=== PATIENT | female | born 1965 | race Caucasian/White ===

== ENCOUNTER 2016-12-27 11:23 | Observation (INO) | payer OTHER ==
[2016-12-27] MEDS ORDERED: ASPIRIN 81 MG CHEW PO STA (11:40)
[2016-12-27] MEDS ORDERED: NITROGLYCERIN OINT 1 INCH/GM PACKET TOPICAL STA (11:40)
--- NOTE | 2016-12-27 11:42 | ED ---
General Adult HPI - General Chief complaint: Chest Pain Stated complaint: CHEST PAIN Time Seen by Provider: 12/27/16 11:25 Source: patient, RN notes reviewed Mode of arrival: wheelchair Limitations: no limitations - History of Present Illness Initial comments: This is a 51-year-old female who presents to the emergency department with past medical history significant for smoking. Patient also has a past medical history for high blood pressure. Patient's also has a positive family history for coronary artery disease. Patient comes in today because she just got back from [place] couple days ago and now she started to spray some chest pain over the last couple of days. Patient states it seems to be worse with deep inspiration. Patient denies any shortness of breath per patient denies any radiation of this pain. Patient denies any diaphoresis with the pain. Patient denies any abdominal pain patient denies any nausea vomiting or diarrhea. Patient denies any recent fever chills or cough. Patient denies any lightheadedness dizziness or near syncopal episode. Patient denies any headache patient denies numbness weakness. Patient denies any back pain. Patient denies any recent injury or trauma. - Related Data Home Medications Medication Instructions Recorded Confirmed Citalopram Hydrobromide [CeleXA] 20 mg PO DAILY 02/20/16 12/27/16 Lisinopril-Hctz 20-12.5 mg 1 tab PO DAILY 02/20/16 12/27/16 [Zestoretic 20-12.5] Allergies Allergy/AdvReac Type Severity Reaction Status Date / Time Penicillins Allergy Rash/Hives Verified 12/27/16 12:13 Review of Systems ROS Statement: Those systems with pertinent positive or pertinent negative responses have been documented in the HPI. ROS Other: All systems not noted in ROS Statement are negative. Past Medical History Past Medical History: GERD/Reflux, Hypertension History of Any Multi-Drug Resistant Organisms: None Reported Past Surgical History: Cholecystectomy, Hysterectomy Past Anesthesia/Blood Transfusion Reactions: No Reported Reaction Past Psychological History: Anxiety, Depression Smoking Status: Current every day smoker Past Alcohol Use History: Occasional Past Drug Use History: None Reported - Past Family History Mother Family Medical History: Cancer, COPD, Diabetes Mellitus, Hypertension General Exam - General Exam Comments Initial Comments: GENERAL: Patient is well-developed and well-nourished. Patient is nontoxic and well- hydrated and is in mild distress. ENT: Neck is soft and supple. No significant lymphadenopathy is noted. Oropharynx is clear. Moist mucous membranes. Neck has full range of motion without eliciting any pain. EYES: The sclera were anicteric and conjunctiva were pink and moist. Extraocular movements were intact and pupils were equal round and reactive to light. Eyelids were unremarkable. PULMONARY: Unlabored respirations. Good breath sounds bilaterally. No audible rales rhonchi or wheezing was noted. CARDIOVASCULAR: There is a regular rate and rhythm without any murmurs gallops or rubs. ABDOMEN: Soft and nontender with normal bowel sounds. No palpable organomegaly was noted. There is no palpable pulsatile mass. SKIN: Skin is clear with no lesions or rashes and otherwise unremarkable. NEUROLOGIC: Patient is alert and oriented x3. Cranial nerves II through XII are grossly intact. Motor and sensory are also intact. Normal speech, volume and content. Symmetrical smile. MUSCULOSKELETAL: Normal extremities with adequate strength and full range of motion. No lower extremity swelling or edema. No calf tenderness. LYMPHATICS: No significant lymphadenopathy is noted PSYCHIATRIC: Normal psychiatric evaluation. Normal interpersonal interactions appears functionally intact in deals appropriately with others. No signs of depression. No signs of anxiety. Limitations: no limitations Course Vital Signs 12/27/16 12/27/16 12/27/16 11:28 13:04 13:51 Temperature 97.0 F L Pulse Rate 92 71 65 Respiratory 16 18 18 Rate Blood Pressure 96/51 104/55 92/55 O2 Sat by Pulse 100 99 100 Oximetry Medical Decision Making - Medical Decision Making EKG shows normal sinus rhythm at 85 bpm WI interval 226 QRS is 72 QT interval 390 QTC is 464. Patient's EKG shows no ST segment elevation or depression or T wave abnormalities are noted. Chest x-ray shows no acute normalities. CT of the chest shows no acute abnormality. I started the patient because of her symptoms risk factors and family history. I spoke with Dr. De La Rosa and he agreed to admit the patient admitted the patient I wrote admitting orders and I consult cardiology. I continue heparin aspirin and nitro paste on the floor. - Lab Data Result diagrams: 12/27/16 11:41 12/27/16 11:41 Lab Results 12/27/16 12/27/16 12/27/16 Range/Units 11:41 11:41 11:41 WBC 7.3 (3.8-10.6) k/uL RBC 4.45 (3.80-5.40) m/uL Hgb 12.6 (11.4-16.0) gm/dL Hct 38.7 (34.0-46.0) % MCV 86.8 (80.0-100.0) fL MCH 28.3 (25.0-35.0) pg MCHC 32.6 (31.0-37.0) g/dL RDW 13.6 (11.5-15.5) % Plt Count 370 (150-450) k/uL Neutrophils % 68 % Lymphocytes % 25 % Monocytes % 3 % Eosinophils % 2 % Basophils % 0 % Neutrophils # 5.0 (1.3-7.7) k/uL Lymphocytes # 1.9 (1.0-4.8) k/uL Monocytes # 0.2 (0-1.0) k/uL Eosinophils # 0.1 (0-0.7) k/uL Basophils # 0.0 (0-0.2) k/uL PT (9.0-12.0) sec INR (<1.1) APTT (22.0-30.0) sec D-Dimer (<0.60) mg/L FEU Sodium 140 (137-145) mmol/L Potassium 4.5 (3.5-5.1) mmol/L Chloride 103 (98-107) mmol/L Carbon Dioxide 27 (22-30) mmol/L Anion Gap 10 mmol/L BUN 11 (7-17) mg/dL Creatinine 0.60 (0.52-1.04) mg/dL Est GFR (MDRD) Af Amer >60 (>60 ml/min/1.73 sqM) Est GFR (MDRD) Non-Af >60 (>60 ml/min/1.73 sqM) Glucose 89 (74-99) mg/dL Calcium 9.8 (8.4-10.2) mg/dL Magnesium 2.1 (1.6-2.3) mg/dL Total Bilirubin 0.5 (0.2-1.3) mg/dL AST 14 (14-36) U/L ALT 25 (9-52) U/L Alkaline Phosphatase 51 (38-126) U/L Total Creatine Kinase 52 (30-135) U/L CK-MB (CK-2) 0.3 (0.0-2.4) ng/mL CK-MB (CK-2) Rel Index 0.6 Troponin I <0.012 (0.000-0.034) ng/mL NT-Pro-B Natriuret Pep pg/mL Total Protein 7.0 (6.3-8.2) g/dL Albumin 4.4 (3.5-5.0) g/dL 12/27/16 12/27/16 Range/Units 11:41 11:41 WBC (3.8-10.6) k/uL RBC (3.80-5.40) m/uL Hgb (11.4-16.0) gm/dL Hct (34.0-46.0) % MCV (80.0-100.0) fL MCH (25.0-35.0) pg MCHC (31.0-37.0) g/dL RDW (11.5-15.5) % Plt Count (150-450) k/uL Neutrophils % % Lymphocytes % % Monocytes % % Eosinophils % % Basophils % % Neutrophils # (1.3-7.7) k/uL Lymphocytes # (1.0-4.8) k/uL Monocytes # (0-1.0) k/uL Eosinophils # (0-0.7) k/uL Basophils # (0-0.2) k/uL PT 10.6 (9.0-12.0) sec INR 1.1 (<1.1) APTT 22.1 (22.0-30.0) sec D-Dimer 0.35 (<0.60) mg/L FEU Sodium (137-145) mmol/L Potassium (3.5-5.1) mmol/L Chloride (98-107) mmol/L Carbon Dioxide (22-30) mmol/L Anion Gap mmol/L BUN (7-17) mg/dL Creatinine (0.52-1.04) mg/dL Est GFR (MDRD) Af Amer (>60 ml/min/1.73 sqM) Est GFR (MDRD) Non-Af (>60 ml/min/1.73 sqM) Glucose (74-99) mg/dL Calcium (8.4-10.2) mg/dL Magnesium (1.6-2.3) mg/dL Total Bilirubin (0.2-1.3) mg/dL AST (14-36) U/L ALT (9-52) U/L Alkaline Phosphatase (38-126) U/L Total Creatine Kinase (30-135) U/L CK-MB (CK-2) (0.0-2.4) ng/mL CK-MB (CK-2) Rel Index Troponin I (0.000-0.034) ng/mL NT-Pro-B Natriuret Pep 43 pg/mL Total Protein (6.3-8.2) g/dL Albumin (3.5-5.0) g/dL Critical Care Time Critical Care Time: Yes Total Critical Care Time: 35 Disposition Clinical Impression: Unstable angina pectoris Disposition: ADMITTED IP TO THIS HOSP Referrals: Jose Oliver DO [Primary Care Provider] - 1-2 days Time of Disposition: 14:01
[2016-12-27 12:05] LABS: Basophils % (A) 0 %; CH 28.7; CHCM 33.2; Eosinophils # (A) 0.1 k/uL (0-0.7); Eosinophils % (A) 2 %; HCT 38.7 % (34.0-46.0); HDW 2.31; HGB 12.6 gm/dL (11.4-16.0); Luc # (Auto) 0.11; Luc % (Auto) 2; Lymphocytes # (A) 1.9 k/uL (1.0-4.8); Lymphocytes % (A) 25 %; MCH 28.3 pg (25.0-35.0); MCHC 32.6 g/dL (31.0-37.0); MCV 86.8 fL (80.0-100.0); Mean Platelet Volume 6.8; Monocytes # (A) 0.2 k/uL (0-1.0); Monocytes % (A) 3 %; Neutrophils % (A) 68 %; RBC 4.45 m/uL (3.80-5.40); RDW 13.6 % (11.5-15.5); WBC 7.3 k/uL (3.8-10.6); WBC (Perox) 7.89
--- NOTE | 2016-12-27 12:07 | XR ---
EXAMINATION TYPE: XR chest 2V DATE OF EXAM: 12/27/2016 12:01 PM COMPARISON: 09/23/1999 TECHNIQUE: PA and lateral views submitted. HISTORY: Chest pain FINDINGS: The lungs are clear and there is no pneumothorax, pleural effusion, or focal pneumonia. Surgical cl ips in the abdomen. Hypertrophic change of the spine. IMPRESSION: 1. No acute process.
[2016-12-27 12:23] LABS: ALT 25 U/L (9-52); AST 14 U/L (14-36); Alkaline Phosphatase 51 U/L (38-126); Anion Gap 10 mmol/L; Blood Urea Nitrogen 11 mg/dL (7-17); Calcium 9.8 mg/dL (8.4-10.2); Carbon Dioxide 27 mmol/L (22-30); Chloride 103 mmol/L (98-107); Glucose 89 mg/dL (74-99); Magnesium 2.1 mg/dL (1.6-2.3); Non-African American GFR(MDRD) >60 (>60 ml/min/1.73 sqM); Potassium 4.5 mmol/L (3.5-5.1); Sodium 140 mmol/L (137-145); Total Bilirubin 0.5 mg/dL (0.2-1.3)
[2016-12-27 12:26] LABS: Partial Thromboplastin Time 22.1 sec (22.0-30.0)
[2016-12-27 12:30] LABS: Creatine Kinase 52 U/L (30-135); INR 1.1 (<1.1); Prothrombin Time 10.6 sec (9.0-12.0)
[2016-12-27 12:44] LABS: Creatine Kinase MB 0.3 ng/mL (0.0-2.4); Troponin I <0.012 ng/mL (0.000-0.034)
[2016-12-27] MEDS ORDERED: RX INFO: IV CONTRAST WAS GIVEN 1 EACH MISC MISCELLANE PRN (13:13)
--- NOTE | 2016-12-27 13:43 | CT ---
EXAMINATION TYPE: CT chest angio for PE DATE OF EXAM: 12/27/2016 1:34 PM COMPARISON: Chest x-ray same date HISTORY: Chest pain and shortness of breath CT DLP: 159.6 mGycm Automated exposure control for dose reduction was used. CONTRAST: CT Chest for pulmonary embolism performed with with IV Contrast, patient injected with 100 mL of Omni paque 350. FINDINGS: LUNGS: The lungs are grossly clear, there is no concerning parenchymal mass or nodule identified. T here is no pleural effusion or pneumothorax seen. The tracheobronchial tree is patent. MEDIASTINUM: There is satisfactory enhancement of the pulmonary artery and its branches, there is no CT evidence for pulmonary embolism. There are no greater than 1 cm hilar or mediastinal lymph nodes. Some metallic density is present associated with nonenlarged nodes in the aorticopulmonary window N o pericardial effusion is seen. AORTA: No additional significant abnormality is seen. OTHER: Posterior diaphragmatic hernias containing fat. Possible parapelvic cyst involving the left k idney. Patient is post cholecystectomy. IMPRESSION: No evident pulmonary embolism. Additional findings above.
[2016-12-27] MEDS ORDERED: HEPARIN SODIUM,PORCINE 5,000 UNIT/ML 1 ML VIAL IV ONE (13:59)
[2016-12-27] MEDS ORDERED: HEPARIN SODIUM,PORCINE/D5W PMX 25,000 UNIT in DEXTROSE/WATER 1 500ML.BAG IV SCH (14:00)
[2016-12-27] MEDS ORDERED: NITROGLYCERIN SL TABS 0.4 MG TAB SUBLINGUAL PRN (14:02)
[2016-12-27] MEDS: NITROGLYCERIN OINT 1 INCH/GM PACKET TOPICAL SCH (18:03)
--- NOTE | 2016-12-27 18:13 | P.HPIM ---
History of Present Illness H&P Date: 12/27/16 Chief Complaint: Chest pain, shortness of breath, nausea, palpitation 51-year-old female one of Dr. Oliver patient with chronic history of smoking over one pack a day for the last 20 years is known to have history of hypertension and diverticulitis and anxiety disease was the hospital last in February last year for diverticulitis with Dr. Garnett patient had early appendicitis as well was treated taking care of. Patient was traveling to [facility] this last week ended up flying back on Tuesday she was doing well until Tuesday when developed to have slight bilateral chest pain worse in the right than the left side on the upper part of her rib cage and the shoulder blade area worsening with deep inspiration worsening with exertion as well associated with cold sweat and palpitation. Patient symptoms become much worse today ended up coming to the emergency department at [facility] her CTA was negative for PE, CK with troponin came back negative with patient family history, smoking, height retention and hyperlipidemia patient was admitted to the hospital with schedule simple stress test and seen cardiology and lesser enzyme become positive overnight. Review of Systems Constitutional: Reports fatigue, Reports lethargy, Reports weakness, Reports weight loss, Denies as per HPI, Denies anorexia, Denies chills, Denies chronic headaches, Denies chronic pain, Denies daytime sleepiness, Denies fever, Denies malaise, Denies night sweats, Denies poor appetite, Denies sweats, Denies weight gain Eyes: bilateral as per HPI Ears: bilateral: decreased hearing Ears, nose, mouth and throat: Reports ant. neck pain, Reports sinus pressure, Denies as per HPI, Denies bleeding gums, Denies dental pain, Denies dysphagia, Denies epistaxis, Denies headache, Denies hoarseness, Denies mouth pain, Denies nasal congestion, Denies nasal discharge, Denies neck fullness/pressure, Denies neck lump, Denies nose pain, Denies odynophagia, Denies post-nasal drip, Denies sinus pain, Denies swelling in mouth, Denies swelling in throat, Denies sore throat, Denies vertigo, Denies voice changes Cardiovascular: Reports chest pain, Reports claudication, Reports decreased exercise tolerance, Reports dyspnea on exertion, Reports high blood pressure, Reports lightheadedness, Reports shortness of breath, Denies as per HPI, Denies edema, Denies irregular heart beat, Denies leg edema, Denies orthopnea, Denies palpitations, Denies paroxysmal nocturnal dyspnea, Denies phlebitis, Denies rapid heart beat, Denies syncope Respiratory: Reports congestion, Reports pain on inspiration, Reports wheezing Gastrointestinal: Reports bloating, Reports heartburn, Reports indigestion, Reports loss of appetite, Reports nausea, Denies as per HPI, Denies abdominal pain, Denies belching, Denies BRBPR, Denies change in bowel habits, Denies coffee ground emesis, Denies constipation, Denies diarrhea, Denies dyspepsia, Denies early satiety, Denies excessive gas, Denies hematemesis, Denies hematochezia, Denies jaundice, Denies lactose intolerance, Denies melena, Denies vomiting Genitourinary: Denies as per HPI, Denies abnormal vaginal bleeding, Denies decreased libido, Denies difficulty conceiving, Denies difficulty voiding, Denies dysmenorrhea, Denies dyspareunia, Denies dysuria, Denies flank pain, Denies genital sores, Denies hematuria, Denies hot flashes, Denies incomplete emptying, Denies kidney stones, Denies menorrhagia, Denies mixed incontinence, Denies nocturia, Denies pelvic pain, Denies post void dribbling, Denies , Denies prolapse symptoms, Denies stress incontinence, Denies urge incontinence , Denies urgency, Denies urinary frequency, Denies vaginal discharge, Denies vaginal dryness, Denies vaginal itching, Denies vaginal odor Musculoskeletal: Reports arm numbness/tingling, Reports leg numbness/tingling, Reports low back pain, Reports myalgias, Reports neck pain, Denies as per HPI, Denies atrophy, Denies fractures, Denies frequent falls, Denies gait dysfunction , Denies hot joints, Denies limitation of motion, Denies loss of height, Denies morning stiffness, Denies muscle cramps, Denies muscle weakness, Denies neck stiffness, Denies prior amputations, Denies redness of joints, Denies shooting arm pain, Denies shooting leg pain Musculoskeletal: bilateral: ankle pain Integumentary: Reports rash, Reports sores, Denies as per HPI, Denies acne, Denies boils, Denies brittle nails, Denies change in hair/nails, Denies color changes, Denies darkening of skin, Denies depigmentation, Denies dryness, Denies foot/leg ulcers, Denies growths, Denies hirsutism, Denies lesions, Denies onychomycosis, Denies pruritus, Denies striae, Denies unusual bruising, Denies wounds Neurological: Denies as per HPI, Denies aphasia, Denies ataxia, Denies balance difficulties, Denies burning pain, Denies change in mentation, Denies change in smell/taste, Denies change in speech, Denies confusion, Denies convulsions, Denies double vision, Denies gait dysfunction, Denies head injury, Denies headaches, Denies hearing difficulties, Denies lack of coordination, Denies loss of vision, Denies memory loss, Denies migraines, Denies motor disturbance, Denies numbness, Denies paralysis, Denies paresthesias, Denies seizures, Denies sensory deficit, Denies spasticity, Denies syncope, Denies tic, Denies tingling , Denies transient paralysis, Denies tremors, Denies vertigo, Denies weakness, Denies visual changes Psychiatric: Reports anhedonia, Reports depression, Denies as per HPI, Denies anxiety, Denies anxiety attacks, Denies change in appetite, Denies change in libido, Denies change in sleep habits, Denies confusion, Denies difficulty concentrating, Denies disorientation, Denies hallucinations, Denies hopelessness , Denies hypersomnia, Denies insomnia, Denies irritability, Denies memory loss, Denies mood swings, Denies paranoia, Denies sadness/tearfulness, Denies sleep disturbances, Denies suicidal ideation Endocrine: Reports cold intolerance, Reports fatigue, Denies as per HPI, Denies deepening of the voice, Denies excessive sweating, Denies excessive thirst, Denies flushing, Denies heat intolerance, Denies high blood sugars, Denies increase in ring/shoe/hat size, Denies low blood sugars, Denies nocturia, Denies palpitations, Denies polydipsia, Denies polyphagia, Denies polyuria, Denies proptosis, Denies recent glucocorticoid use, Denies thyroid mass, Denies weight change Hematologic/Lymphatic: Reports easy bruising, Denies as per HPI, Denies easy bleeding, Denies lymphadenopathy, Denies lymphedema, Denies thrombophilia Allergic/Immunologic: Reports allergic rhinitis, Denies as per HPI, Denies anaphylaxis, Denies angioedema, Denies gluten intolerance, Denies persistent infections, Denies seasonal allergies, Denies urticaria, Denies wheezing Past Medical History Past Medical History: GERD/Reflux, Hypertension Additional Past Medical History / Comment(s): DIVERTICULAR DISEASE History of Any Multi-Drug Resistant Organisms: None Reported Past Surgical History: Cholecystectomy, Hysterectomy Past Anesthesia/Blood Transfusion Reactions: No Reported Reaction Past Psychological History: Anxiety, Depression Additional Psychological History / Comment(s): AT TIME OF THIS ADMIT PT STATED SHE FEELS WELL MAINTAINED BY HERE MEDS. PT LIVES ALONE IN OWN HOME THAT HAS 4 STEPS IN WHICH TO ENTER.HAS 1 PET DOG. NO OUTSIDE SERVICES, NO MEDICAL EQUIPMENT AT HOME. PT IS INDEPENDANT. WORKS A [employer] FOR [employer]. Smoking Status: Current every day smoker Past Alcohol Use History: Occasional Additional Past Alcohol Use History / Comment(s): STARTED SMOKING AT AGE 15, SMOKES 1 PPD. Past Drug Use History: None Reported - Past Family History Mother Family Medical History: Cancer, COPD, Diabetes Mellitus, Hypertension Father Additional Family Medical History / Comment(s): FROM [place] Medications and Allergies Home Medications Medication Instructions Recorded Confirmed Type Citalopram Hydrobromide [CeleXA] 20 mg PO DAILY 02/20/16 12/27/16 History Lisinopril-Hctz 20-12.5 mg 1 tab PO DAILY 02/20/16 12/27/16 History [Zestoretic 20-12.5] Allergies Allergy/AdvReac Type Severity Reaction Status Date / Time Penicillins Allergy Rash/Hives Verified 12/27/16 12:13 Physical Exam Vitals: Vital Signs Temp Pulse Pulse Resp BP BP Pulse Ox 12/27/16 15:45 18 12/27/16 15:01 97.5 F L 68 18 96/63 100 12/27/16 14:26 98.8 F 65 18 92/55 98 Intake and Output 12/27/16 12/27/16 12/27/16 06:59 14:59 22:59 Other: Weight 54 kg Patient Weight 12/28/16 06:59 Weight 54 kg - Constitutional General appearance: no average body habitus, cooperative, no disheveled, no mild distress, no morbidly obese, no acute distress, no obese, no severe distress, no thin - EENT Eyes: no abnormal pupil, no anicteric sclerae, no disc margins sharp, no edentulous, no EOMI, no PERRLA, no fundus normal, no photophobia, no dentition normal, no poor dentition, no ptosis, no scleral icterus, normal appearance ENT: no hard of hearing, no hearing grossly normal, no NA/AT, no normal oropharynx, no other, pharyngeal erythema, no thrush, no tonsillar exudates, no tonsillar swelling Ears: bilateral: normal - Neck Neck: no lymphadenopathy, normal ROM, no other, no rigidity, no stridor, no thyromegaly Carotids: bilateral: upstroke normal, upstroke delayed Thyroid: bilateral: normal size - Respiratory Respiratory: bilateral: CTA, diminished, dullness - Cardiovascular Rhythm: regular Heart sounds: normal: S1, S2 Abnormal Heart Sounds: systolic murmur, S3 Gallop - Gastrointestinal General gastrointestinal: no absent bowel sounds, decreased bowel sounds, no distended, no hepatomegaly, no hyperactive bowel sounds, normal bowel sounds, no organomegaly, no rigid, no scaphoid, soft, no splenomegaly, no tenderness, no umbilical hernia, no ventral hernia - Integumentary Integumentary: no calor, no cellulitis, no cyanotic, no decreased turgor, no flushed, no jaundiced, normal, no normal turgor, pale, rash, no ulcer - Neurologic Neurologic: CNII-XII intact - Musculoskeletal Musculoskeletal: gait normal, generalized weakness, no strength equal bilaterally, no right sided weakness, no left sided weakness - Psychiatric Psychiatric: A&O x's 3, appropriate affect Results CBC & Chem 7: 12/27/16 11:41 12/27/16 11:41 Thrombosis Risk Factor Assmnt - DVT/VTE Prophylaxis DVT/VTE Prophylaxis: Pharmacologic Prophylaxis ordered, Mechanical Prophylaxis ordered Assessment and Plan Plan: 1 atypical chest pain: With patient's current symptoms CTA was done no PE or thrombus at this point, troponin was negative PG didn't show any major abnormality. Patient be hospitalized will be seen cardiology schedule echo stress test and echocardiogram for now. 2 shortness of breath: Most likely from COPD and chronic smoking try to treat underlying disease and if needed rescue inhaler can be use. 3 hypertension: Has been on lisinopril HCT 20/12.5 mg daily doing very well with it so far. 4 hoarseness: Secondary to vocal cord nodular patient apparently had a diagnosis but refused surgery in the past for way about having to vocal cord paralysis. Something patient can follow-up as an outpatient with ENT. 5 chronic smoking: Patient will be on nicotine patch for now. 6 recurrent diverticulitis: With no inflamed diverticulitis lately has been doing well. 7 GERD/GI prophylaxis: Patient be on Pepcid 20 mg daily. 8 DVT prophylaxis: Patient will be on heparin drip for now. CODE STATUS: Full code. Expectation from this admission: Patient in the hospital for 1-2 nights.
[2016-12-27 18:51] LABS: Creatine Kinase 41 U/L (30-135)
[2016-12-27 19:03] LABS: Creatine Kinase MB 0.3 ng/mL (0.0-2.4); Troponin I <0.012 ng/mL (0.000-0.034)
[2016-12-27] MEDS ORDERED: CITALOPRAM HYDROBROMIDE 20 MG TAB PO STA (19:42)
[2016-12-27] MEDS ORDERED: HEPARIN SODIUM,PORCINE 10,000 UNIT/ML 1 ML VIAL IV STA (23:17)
[2016-12-28 00:23] LABS: Creatine Kinase 36 U/L (30-135)
[2016-12-28 00:37] LABS: Creatine Kinase MB 0.4 ng/mL (0.0-2.4); Troponin I <0.012 ng/mL (0.000-0.034)
[2016-12-28] MEDS: NITROGLYCERIN OINT 1 INCH/GM PACKET TOPICAL SCH ×3 (01:12→15:07)
[2016-12-28] MEDS ORDERED: HEPARIN SODIUM,PORCINE 10,000 UNIT/ML 1 ML VIAL SQ STA (01:21)
[2016-12-28 08:21] LABS: Cholesterol 181 mg/dL (<200); HDL Cholesterol 53 mg/dL (40-60); Triglycerides 106 mg/dL (<150)
--- NOTE | 2016-12-28 08:33 | P.CRDCN ---
History of Present Illness Consult date: 12/28/16 Chief complaint: Chest discomfort History of present illness: This is a pleasant 51-year-old female patient with a past medical history significant for hypertension who was also a smoker and has very significant family history of CAD presented to the emergency room complaining of chest discomfort. The patient just came from a trip from [facility]. She has been experiencing chest discomfort for the last 2 days. She describes the discomfort as a pressure across the chest without any radiation to the arm or neck or shoulders and without any associated symptoms. The chest discomfort doesn't seems to be exertional. She has been pain-free during her hospitalization. She has hypertension as a risk factor for CAD. She doesn't smoke 1 pack per day for more than 20 years. She has significant family history of CAD. The cardiac workup of EKG and enzymes came in to be unremarkable. She underwent a CTA of the chest which showed no evidence of PE. The patient was ruled out for acute coronary event. In view of her risk factor and significant family history I will schedule the patient to have a stress test early this morning. Past Medical History Past Medical History: GERD/Reflux, Hypertension Additional Past Medical History / Comment(s): DIVERTICULAR DISEASE History of Any Multi-Drug Resistant Organisms: None Reported Past Surgical History: Cholecystectomy, Hysterectomy Past Anesthesia/Blood Transfusion Reactions: No Reported Reaction Past Psychological History: Anxiety, Depression Additional Psychological History / Comment(s): AT TIME OF THIS ADMIT PT STATED SHE FEELS WELL MAINTAINED BY HERE MEDS. PT LIVES ALONE IN OWN HOME THAT HAS 4 STEPS IN WHICH TO ENTER.HAS 1 PET DOG. NO OUTSIDE SERVICES, NO MEDICAL EQUIPMENT AT HOME. PT IS INDEPENDANT. WORKS A [employer] FOR [employer]. Smoking Status: Current every day smoker Past Alcohol Use History: Occasional Additional Past Alcohol Use History / Comment(s): STARTED SMOKING AT AGE 15, SMOKES 1 PPD. Past Drug Use History: None Reported - Past Family History Mother Family Medical History: Cancer, COPD, Diabetes Mellitus, Hypertension Father Additional Family Medical History / Comment(s): FROM [place] Medications and Allergies Home Medications Medication Instructions Recorded Confirmed Type Citalopram Hydrobromide [CeleXA] 20 mg PO DAILY 02/20/16 12/27/16 History Lisinopril-Hctz 20-12.5 mg 1 tab PO DAILY 02/20/16 12/27/16 History [Zestoretic 20-12.5] Allergies Allergy/AdvReac Type Severity Reaction Status Date / Time Penicillins Allergy Rash/Hives Verified 12/27/16 12:13 Physical Exam Vitals: Vital Signs Temp Pulse Pulse Resp BP BP Pulse Ox 12/28/16 07:42 98.1 F 71 16 92/57 97 12/28/16 07:19 96 12/28/16 04:00 70 16 12/28/16 03:58 98.8 F 79 16 95/59 95 12/28/16 00:00 68 16 12/27/16 23:37 98.5 F 68 16 98/52 97 12/27/16 20:00 68 16 12/27/16 19:46 97.8 F 70 16 98/51 98 12/27/16 15:45 18 12/27/16 15:01 97.5 F L 68 18 96/63 100 12/27/16 14:26 98.8 F 65 18 92/55 98 Intake and Output 12/27/16 12/28/16 12/28/16 22:59 06:59 14:59 Intake Total 620 965.463 Balance 620 965.463 Intake: IV 440 0.9 NS @ KVO 240 Heparin Sodium,Porcine/ 200 D5w Pmx 25,000 unit In Dextrose/Water 1 500ml. bag @ 12 UNITS/KG/HR 14. 15 mls/hr IV .Q24H [facility] Rx #:[id number] Intake, IV Titration 125.463 Amount Heparin Sodium,Porcine/ 125.463 D5w Pmx 25,000 unit In Dextrose/Water 1 500ml. bag @ 12 UNITS/KG/HR 14. 15 mls/hr IV .Q24H [facility]ANE Rx #:[id number] Oral 620 400 Other: # Voids 2 Weight 54 kg 57 kg - Constitutional General appearance: no acute distress - Respiratory Respiratory: bilateral: CTA - Cardiovascular Rhythm: regular Heart sounds: normal: S1, S2 Results 12/27/16 11:41 12/27/16 11:41 Cardiac Enzymes 12/27/16 12/27/16 Range/Units 17:36 23:36 CK-MB (CK-2) 0.3 0.4 (0.0-2.4) ng/mL Troponin I <0.012 <0.012 (0.000-0.034) ng/mL Coagulation 12/27/16 12/28/16 Range/Units 21:12 07:22 APTT 26.0 33.2 H (22.0-30.0) sec Lipids 12/28/16 Range/Units 07:20 Triglycerides 106 (<150) mg/dL Cholesterol 181 (<200) mg/dL HDL Cholesterol 53 (40-60) mg/dL Current Medications Generic Name Dose Route Start Last Admin Trade Name Freq PRN Reason Stop Dose Admin Aspirin 325 mg 12/28/16 09:00 Aspirin PO DAILY [facility] Citalopram Hydrobromide 20 mg 12/28/16 09:00 Celexa PO DAILY [facility] Famotidine 20 mg 12/28/16 09:00 Pepcid PO DAILY [facility] Lisinopril/HCTZ 1 each 12/28/16 09:00 Zestoretic 20-12.5 PO DAILY [facility] Heparin Sodium/Dextrose 25,000 500 mls @ 14.15 mls/hr 12/27/16 14:00 23:13 unit/ IV Solution IV 15 units/kg/hr .Q24H YANE 17.69 mls/hr Protocol Titration 12 UNITS/KG/HR Miscellaneous Information 1 each 12/27/16 13:13 12/27/16 13:51 Rx Info: Iv Contrast Was Given MISCELLANE 12/29/16 13:13 1 each DAILY PRN Administration Per Protocol Nicotine 1 patch 12/28/16 09:00 Habitrol 14mg/24hr Patch TRANSDERM DAILY [facility] Nitroglycerin 1 inch 12/27/16 18:00 12/28/16 06:05 Nitro-Bid Oint TOPICAL Not Given Q6HR [facility] Nitroglycerin 0.4 mg 12/27/16 14:02 Nitrostat SUBLINGUAL Q5M PRN Chest Pain Intake and Output 12/27/16 12/28/16 12/28/16 22:59 06:59 14:59 Intake Total 620 965.463 Balance 620 965.463 Intake: IV 440 0.9 NS @ KVO 240 Heparin Sodium,Porcine/ 200 D5w Pmx 25,000 unit In Dextrose/Water 1 500ml. bag @ 12 UNITS/KG/HR 14. 15 mls/hr IV .Q24H [facility] Rx #:[id number] Intake, IV Titration 125.463 Amount Heparin Sodium,Porcine/ 125.463 D5w Pmx 25,000 unit In Dextrose/Water 1 500ml. bag @ 12 UNITS/KG/HR 14. 15 mls/hr IV .Q24H [facility] Rx #:[id number] Oral 620 400 Other: # Voids 2 Weight 54 kg 57 kg Assessment and Plan Plan: Assessment #1 atypical chest discomfort #2 hypertension #3 significant history of smoking #4 significant family history of CAD Plan #1 the patient will be scheduled to undergo a stress test.
[2016-12-28] MEDS ORDERED: CITALOPRAM HYDROBROMIDE 20 MG TAB PO SCH (09:00)
[2016-12-28] MEDS ORDERED: ASPIRIN 325 MG TAB PO SCH (09:00)
[2016-12-28] MEDS ORDERED: FAMOTIDINE 20 MG TAB PO SCH (09:00)
[2016-12-28] MEDS ORDERED: NICOTINE 14MG/24HR PATCH TRANSDERM SCH (09:00)
[2016-12-28] MEDS ORDERED: LISINOPRIL-HCTZ 20-12.5 MG 1 EACH TAB PO SCH (09:00)
[2016-12-28 11:19] VITALS: BP 96/61; PULSE 85; RESP 14; TEMP 98
--- NOTE | 2016-12-28 11:29 | EST ---
DATE OF SERVICE: 12/28/2016 AGE: 51Y SEX: F HT: 61" WT: 125 lbs. Protocol Bryon: X Other: Stress Stage: 3 Dur. of Exercise: 7:00 *Heart Rate Blood Pressure *Rest: 82 Rest: 94/63 * *Max. Achieved: 154 Maximum BP: 141/72 85% PMHR: 145 100% PMHR: 171 *METS: 8.6 INDICATIONS: Chest pain. MEDICATIONS: Celexa, lisinopril. Baseline EKG revealed normal sinus rhythm without significant ST-T changes. Patient walked on standard Bryon protocol for a total duration of 7 minutes, achieved a maximum heart rate of 154 beats per minute. Developed fatigue and shortness of breath, but did not have angina or arrhythmia. There were a lot of artifact, but there were no ST segment changes to indicate ischemia and patient did not have angina. By EKG criteria, this is a negative stress test with fair exercise capacity. There was no angina or arrhythmia.
--- NOTE | 2016-12-28 12:43 | P.DS ---
Providers Date of admission: 12/27/16 14:02 Expected date of discharge: 12/28/16 Attending physician: Brandon De La Rosa Primary care physician: Jose Oliver [facility] Course: 51-year-old female one of Dr. Oliver patient with chronic history of smoking over one pack a day for the last 20 years is known to have history of hypertension and diverticulitis and anxiety disease was the hospital last in February last year for diverticulitis with Dr. Garnett patient had early appendicitis as well was treated taking care of. Patient was traveling to [facility] this last week ended up flying back on Tuesday she was doing well until Tuesday when developed to have slight bilateral chest pain worse in the right than the left side on the upper part of her rib cage and the shoulder blade area worsening with deep inspiration worsening with exertion as well associated with cold sweat and palpitation. Patient symptoms become much worse today ended up coming to the emergency department at [facility] her CTA was negative for PE, CK with troponin came back negative with patient family history, smoking, height retention and hyperlipidemia patient was admitted to the hospital with schedule simple stress test and seen cardiology and lesser enzyme become positive overnight. 12/28: Patient was seen by cardiology and underwent a stress test that was negative. 3 sets of troponin were negative. Lipid panel triglycerides were 106 , total cholesterol 181, LDL 107, HDL 53. Patient will be discharged home in stable condition. 1 atypical chest pain 2 shortness of breath 3 hypertension 4 hoarseness 5 chronic smoking 6 recurrent diverticulitis 7 GERD The above impression and plan of care have been discussed and directed by signing physician. Mehreen Chapa nurse practitioner acting as scribe for signing physician. Cc Dr. Oliver Plan - Discharge Summary New Discharge Prescriptions: Nicotine 14Mg/24Hr Patch [Habitrol] 1 patch TRANSDERM DAILY #30 patch Discharge Medication List Citalopram Hydrobromide [CeleXA] 20 mg PO DAILY 02/20/16 [History] Lisinopril-Hctz 20-12.5 mg [Zestoretic 20-12.5] 1 tab PO DAILY 02/20/16 [History ] Nicotine 14Mg/24Hr Patch [Habitrol] 1 patch TRANSDERM DAILY #30 patch 12/28/16 [ Rx] Follow up Appointment(s)/Referral(s): Jose Oliver, [Primary Care Provider] - 1 Week Discharge Disposition: HOME SELF-CARE
== END 2016-12-28 15:05 | disposition home or self-care (01) ==
LOC: EC 11:23 → 3OBS 14:02
PROVIDERS: ADMIT Internal Medicine; ATTEND Internal Medicine
DX: R07.89 Other chest pain (principal); R06.02 Shortness of breath; R61 Generalized hyperhidrosis; R00.2 Palpitations; J44.9 Chronic obstructive pulmonary disease, unspecified; F17.200 Nicotine dependence, unspecified, uncomplicated; I10 Essential (primary) hypertension; J38.2 Nodules of vocal cords; K57.92 Diverticulitis of intestine, part unspecified, without perforation or abscess without bleeding; K21.9 Gastro-esophageal reflux disease without esophagitis; F41.9 Anxiety disorder, unspecified; F32.9 Major depressive disorder, single episode, unspecified; Z79.899 Other long term (current) drug therapy; Z88.0 Allergy status to penicillin; Z82.5 Family history of asthma and other chronic lower respiratory diseases; Z82.49 Family history of ischemic heart disease and other diseases of the circulatory system; Z83.3 Family history of diabetes mellitus; E78.5 Hyperlipidemia, unspecified
CPT/HCPCS: 96366 ×2; 96376; 96365; 99291; 36415; 94760; 93005; 93017; 85379; 83880; 80061; 80053; 82550; 82553; 83735; 84484; 85025; 85610; 85730 ×2; 71020; 71275; G0378 ×2; J1644 ×2; Q9967

== ENCOUNTER → 2022-09-15 | Outpatient (CLI) | payer OTHER ==
--- NOTE | 2022-09-16 15:15 | NM ---
EXAMINATION TYPE: NM thyroid image w uptake DATE OF EXAM: 09/16/2022 COMPARISON: NONE HISTORY: E05.9THYROTOXICOSIS, UNSP WITHOUT THYROTOXIC CRISIS OR STORM TECHNIQUE: Thyroid iodine uptake is calculated and images performed after the oral administration of 290 uCi 1-123 Capsule. FINDINGS: There is increased distribution of activity throughout the gland. There is no evidence for hot or cold nodule. The 4 hour iodine uptake is calculated at 39.8% (normal range 8-14%). The 24-john r iodine uptake is calculated at 53.6% (normal range 15-35%). IMPRESSION: Findings compatible with hypertrapping state. Correlate with the thyroid function testing .
== END | disposition home or self-care (01) ==
LOC: RADNMMAIN 08:38
PROVIDERS: ATTEND Family Medicine
DX: E05.90 Thyrotoxicosis, unspecified without thyrotoxic crisis or storm (principal)
CPT/HCPCS: 78014; A9516

== ENCOUNTER → 2022-09-15 | Outpatient (CLI) | payer OTHER ==
--- NOTE | 2022-09-15 10:27 | US ---
EXAMINATION TYPE: US thyroid st tissue head/neck DATE OF EXAM: 09/15/2022 COMPARISON: NONE CLINICAL HISTORY: E05.90 THYROTOXICOSIS. abn labs, no symptoms GLAND SIZE: Right Lobe: 4.5 x 1.2 x 2.0 cm Overall Parenchyma: heterogenous, increased color flow. Left Lobe: 3.2 x 1.2 x 1.5cm cm Overall Parenchyma: heterogeneous, increased color flow. Isthmus Thickness: 0.2 cm NODULES RIGHT: # of nodules measured on right: 0 LEFT: # of nodules measured on left: 0 ISTHMUS: # of nodules measured in the isthmus: 0 Bilateral neck scanned, no evidence of lymphadenopathy. IMPRESSION: Diffusely heterogenous thyroid gland with increased color flow. No discrete nodules. Findings could b e seen with Graves' disease.
== END | disposition home or self-care (01) ==
LOC: RADUSWWP 08:18
PROVIDERS: ATTEND Family Medicine
DX: E05.90 Thyrotoxicosis, unspecified without thyrotoxic crisis or storm (principal); E07.89 Other specified disorders of thyroid
CPT/HCPCS: 76536

== ENCOUNTER → 2022-11-19 | Outpatient (CLI) | payer OTHER ==
[2022-11-19 18:54] LABS: HCT 40.9 % (37.2-46.3); HGB 13.4 g/dL (12.0-15.0); MCH 27.2 pg (27.0-32.0); MCHC 32.8 g/dL (32.0-37.0); Mean Platelet Volume 10.4 fL (9.5-12.2); NRBC Per 100 WBC 0 /100 WBCS (0.0-0.0); Platelet Count 404 X 10*3/uL (140-440); RBC 4.93 X 10*6/uL (4.10-5.20); RDW 12.7 % (11.5-14.5); WBC 6.93 X 10*3/uL (4.50-10.00)
[2022-11-19 19:25] LABS: ALT 14 U/L (8-44); AST 14 U/L (13-35); African American GFR (CKD) 119.9 (60.0-200.0); Albumin 4.8 g/dL (3.8-4.9); Albumin/Globulin Ratio 2.22 (1.60-3.17); Alkaline Phosphatase 75 U/L (41-126); BUN/Creat Ratio 22.53 Ratio (12.00-20.00); Blood Urea Nitrogen 13.2 mg/dL (9.0-27.0); Calcium 10.2 mg/dL (8.7-10.3); Chloride 99 mmol/L (96-109); Globulin 2.2 g/dL (1.6-3.3); Glucose 94 mg/dL (70-110); Non-African American GFR(CKD) 103.4 (60.0-200.0); Potassium 4.5 mmol/L (3.5-5.5); Sodium 140 mmol/L (135-145)
== END | disposition home or self-care (01) ==
LOC: LABWHC1 13:01
PROVIDERS: ATTEND Internal Medicine Endocrinology, Diabetes & Metabolism
DX: E05.00 Thyrotoxicosis with diffuse goiter without thyrotoxic crisis or storm (principal)
CPT/HCPCS: 36415; 80053; 84439; 84443; 84445; 84480; 85027

== ENCOUNTER → 2023-07-22 | Outpatient (CLI) | payer OTHER ==
[2023-07-23 03:05] LABS: T4, Free (Free Thyroxine) 1.16 ng/dL (0.80-1.80)
== END | disposition home or self-care (01) ==
LOC: LABWHC1 14:46
PROVIDERS: ATTEND Internal Medicine Endocrinology, Diabetes & Metabolism
DX: E05.00 Thyrotoxicosis with diffuse goiter without thyrotoxic crisis or storm (principal)
CPT/HCPCS: 36415; 84439; 84443; 84480

== ENCOUNTER → 2023-12-13 | Outpatient (CLI) | payer OTHER ==
[2023-12-13 16:28] LABS: T4, Free (Free Thyroxine) 1.06 ng/dL (0.80-1.80)
== END | disposition home or self-care (01) ==
LOC: LABWHC1 11:48
PROVIDERS: ATTEND Internal Medicine Endocrinology, Diabetes & Metabolism
DX: E05.00 Thyrotoxicosis with diffuse goiter without thyrotoxic crisis or storm (principal)
CPT/HCPCS: 36415; 84439; 84443; 84480